=== PATIENT | male | born 1990 | race Caucasian/White ===

== ENCOUNTER 2025-06-18 23:43 | Emergency (ER) | payer SELFPAY ==
[~2025-06-18] VITALS: Ht 180.3 cm; Wt 91.0 kg
[2025-06-18 23:46] VITALS: O2SAT 99
[2025-06-19] MEDS ORDERED: LIDOCAINE HCL 1% 20ML VIAL INFIL ONE (01:15)
[2025-06-19] MEDS ORDERED: TETANUS, DIPHTHERIA, PERTUSSIS VAC/PF 0.5ML (>10YR OLD) IM ONE (01:15)
[2025-06-19] MEDS: TETANUS, DIPHTHERIA, PERTUSSIS VAC/PF 0.5ML (>10YR OLD) IM ONE (03:43)
[2025-06-19] MEDS: LIDOCAINE HCL 1% 20ML VIAL INFIL NR (03:45)
[2025-06-19] MEDS: HYDROCODONE/ACETAMINOPHEN 10/325MG TABLET PO NR (04:15)
[2025-06-19] MEDS ORDERED: CEFTRIAXONE 500 MG in DEXTROSE 5% WATER 50 ML IV SCH (05:30)
[2025-06-19] MEDS: ONDANSETRON HCL 4MG/2ML INJ IV ONE (05:40)
[2025-06-19] MEDS: CEFTRIAXONE 1GM/50ML 50 ML IV SCH (05:40)
[2025-06-19] MEDS ORDERED: IBUP-2030 MT (08:11)
[2025-06-19] MEDS ORDERED: MUPI1OIN4 TP (08:11)
[2025-06-19 08:52] VITALS: BP 129/77; PULSE 80; RESP 21; TEMP 36.7; O2SAT 100
== END 2025-06-19 08:58 | disposition home or self-care (01) ==
LOC: ER 23:43
DX: S01.111A Laceration without foreign body of right eyelid and periocular area, initial encounter (principal); R51.9 Headache, unspecified; V43.52XA Car driver injured in collision with other type car in traffic accident, initial encounter; Y93.89 Activity, other specified; Y92.410 Unspecified street and highway as the place of occurrence of the external cause; Y99.8 Other external cause status
CPT/HCPCS: 12011; 99285; 70160; 70450; 72125; 90715; 90471; 96365; 96366; 96375; J0696; J2003; J2405; Z7610; J7060